=== PATIENT | female | born 1965 | race Caucasian/White ===

== ENCOUNTER 2016-06-29 22:10 | Emergency (ER) | payer OTHER | END 2016-06-30 04:18 | disposition home or self-care (01) | LOC: FER 22:10 | DX: S16.1XXA Strain of muscle, fascia and tendon at neck level, initial encounter (principal); M54.5 Low back pain; R22.0 Localized swelling, mass and lump, head; R20.2 Paresthesia of skin; I10 Essential (primary) hypertension; E11.9 Type 2 diabetes mellitus without complications; V43.62XA Car passenger injured in collision with other type car in traffic accident, initial encounter; Y92.410 Unspecified street and highway as the place of occurrence of the external cause | CPT/HCPCS: 72050; 72110; J1885 ==